=== PATIENT | female | born 1970 | race Caucasian/White ===

== ENCOUNTER 2016-09-19 22:38 | Emergency (ER) | payer MEDICAID ==
[2016-09-19] MEDS ORDERED: HYDROmorphone 1 MG/ML SYRINGE IM STA ×2 (23:01→23:50)
[2016-09-19] MEDS ORDERED: CEPHALEXIN 250 MG CAPSULE PO STA (23:02)
[2016-09-19] MEDS ORDERED: PROMETHAZINE 25 MG/1 ML VIAL IM STA (23:02)
[2016-09-19] MEDS ORDERED: KETOROLAC 30 MG/ML VIAL IM STA (23:02)
[2016-09-19] MEDS ORDERED: PROMETHAZINE 25 MG/1 ML VIAL ONE (23:07)
[2016-09-19] MEDS ORDERED: KETOROLAC 30 MG/ML VIAL ONE (23:07)
[2016-09-19] MEDS ORDERED: CEPHALEXIN 250 MG CAPSULE PO ONE (23:07)
[2016-09-19] MEDS ORDERED: HYDROmorphone 1 MG/ML SYRINGE ONE (23:07)
[2016-09-19] MEDS ORDERED: ACETAMINOPHEN 325 MG TABLET PO STA (23:50)
[2016-09-20] MEDS ORDERED: HYDROmorphone 1 MG/ML SYRINGE ONE (00:02)
[2016-09-20] MEDS ORDERED: ACETAMINOPHEN 325 MG TABLET PO ONE (00:02)
[2016-09-20] MEDS ORDERED: HYDROcod/ACET 5/325 Prepack 6 PO ONE ×2 (00:52→01:01)
[2016-09-20] MEDS ORDERED: CEPHALEXIN 250 MG Prepack 8 PO ONE ×2 (00:52→01:01)
[2016-09-20] MEDS ORDERED: ALBUTEROL 8 GM INHALER INH STA (00:52)
[2016-09-20] MEDS ORDERED: ALBUTEROL 8 GM INHALER INH ONE (01:14)
[2016-09-20] MEDS ORDERED: METHOCARBAMOL 500 MG TABLET PO STA (01:24)
[2016-09-20] MEDS ORDERED: METHOCARBAMOL 500 MG TABLET PO ONE (01:25)
== END 2016-09-20 01:28 | disposition home or self-care (01) ==
DX: H66.90 Otitis media, unspecified, unspecified ear (principal); I88.9 Nonspecific lymphadenitis, unspecified; R51 Headache; J44.9 Chronic obstructive pulmonary disease, unspecified; J45.909 Unspecified asthma, uncomplicated; F17.200 Nicotine dependence, unspecified, uncomplicated
CPT/HCPCS: 70450; 94640; 96372; 99282; 99284; A9270

== ENCOUNTER 2016-10-19 01:06 | Emergency (ER) | payer MEDICAID ==
[2016-10-19] MEDS ORDERED: AMOX/CLAV 875 MG/125 MG TABLET PO STA (01:37)
[2016-10-19] MEDS ORDERED: DEXAMETHASONE 10 MG/ML VIAL PO STA (01:37)
[2016-10-19] MEDS ORDERED: AMOX/CLAV 875 MG/125 MG TABLET PO ONE (01:38)
[2016-10-19] MEDS ORDERED: DEXAMETHASONE 10 MG/ML VIAL ONE (01:38)
== END 2016-10-19 01:43 | disposition home or self-care (01) ==
DX: I88.9 Nonspecific lymphadenitis, unspecified (principal); E78.00 Pure hypercholesterolemia, unspecified; J45.909 Unspecified asthma, uncomplicated; J44.9 Chronic obstructive pulmonary disease, unspecified; M79.7 Fibromyalgia; F17.200 Nicotine dependence, unspecified, uncomplicated
CPT/HCPCS: 99283; A9270

== ENCOUNTER 2017-11-24 08:58 | Emergency (ER) | payer MEDICAID ==
[2017-11-24 09:12] VITALS: BP 138/90
--- NOTE | 2017-11-24 09:33 | ED Physician Documentation ---
History of Present Illness - Stated complaint Stated Complaint: EAR PX - Chief complaint Chief Complaint: Heent - History obtained from History obtained from: Patient, Friend - History of Present Illness Timing: Yesterday Pain level max: 5 Pain level now: 4 Improved by: nothing Worsened by: nothing - Additonal information Additional information: Patient is a 47-year-old female who has had viral URI symptoms for the past 2 weeks, rhinorrhea, cough congestion. States that yesterday she began to have right ear pain. Noticed some blood on the cotton swab this morning. No fevers. Review of Systems Constitutional: denies: Fever, Chills Ears: denies: Ear pain Nose: reports: Rhinorrhea / runny nose, Congestion Throat: denies: Sore throat Cardiac: denies: Chest pain / pressure Respiratory: reports: Cough. 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 - Present Medications Home Medications: Ambulatory Orders Medication Instructions Recorded Confirmed Bupropion HCl [Wellbutrin] 100 mg PO BID 05/22/13 09/19/16 rOPINIRole [Requip] 15 mg PO HS 05/22/13 10/19/16 Albuterol Sulfate 2.5 mg IH Q6H PRN #1 bot 03/29/16 09/19/16 Albuterol Sulfate [Proventil Hfa 1 - 2 puffs IH Q4H PRN #1 03/29/16 09/19/16 Inhaler] hfa.aer.ad Fluticasone Propionate [Flovent 03/29/16 Diskus] Albuterol Sulfate [Proair Hfa 2 puffs IH QID #1 hfa.aer.ad 09/20/16 Inhaler] Hydrocodone/Acetaminophen [[place] 1 each PO Q6H PRN #20 tablet 09/20/16 10/19/16 5-325 Tablet] Methocarbamol [Robaxin] 500 mg PO Q6H PRN #25 tablet 09/20/16 10/19/16 Ondansetron Odt [Zofran] 4 mg TL Q6H PRN #15 tablet 09/20/16 10/19/16 Amoxicillin/Potassium Clav 1 each PO BID #20 tablet 10/19/16 [Augmentin 875-125 Tablet] Cetirizine HCl/Pseudoephedrine 1 each PO BID PRN #30 tab.er.12h 11/24/17 [Zyrtec-D Tablet] Neomycin/Polymyx/Hc Otic Drops 4 drops OT TID 10 Days #1 bottle 11/24/17 [Cortisporin Ear Susp] - Allergies Allergies/Adverse Reactions: Allergies Allergy/AdvReac Type Severity Reaction Status Date / Time codeine Allergy Cramps Verified 10/19/16 01:14 ibuprofen Allergy Nausea Verified 10/19/16 01:14 - Social History Does the pt smoke?: Yes Smoking Status: Current every day smoker Does the pt drink ETOH?: No Does the pt have substance abuse?: No - Immunizations Immunizations are current?: Yes - POLST Patient has POLST: No PD ED PE NORMAL - Vitals Vital signs reviewed: Yes - General General: Alert and oriented X 3, No acute distress - HEENT HEENT: Moist mucous membranes, Other (L TM normal. R TM is erythematous, canal is swollen with white/yellow drainage. ) - Neck Neck: Supple, no meningeal sign - Cardiac Cardiac: RRR, Strong equal pulses - Respiratory Respiratory: No respiratory distress, Clear bilaterally - Derm Derm: Warm and dry - Neuro Neuro: Alert and oriented X 3 - Psych Psych: Normal mood, Normal affect Results - Vitals Vitals: Vital Signs - 24 hr 11/24/17 09:10 Temperature 36.7 C Heart Rate 80 Respiratory 20 Rate Blood Pressure 138/90 H O2 Saturation 100 Oxygen O2 Source Room air PD MEDICAL DECISION MAKING - ED course Complexity details: considered differential, d/w patient ED course: Patient is a 47-year-old female with a right acute otitis externa as well as a viral upper respiratory infection. No evidence of pneumonia. No hypoxia. No respiratory distress. No evidence of sepsis. Tympanic membrane does not appear to be ruptured at this time. Will place on otic antibiotics and follow- up with her doctor. Patient counseled regarding signs and symptoms for which I believe and urgent re-evaluation would be necessary. Patient with good understanding of and agreement to plan and is comfortable going home at this time This document was made in part using voice recognition software. While efforts are made to proofread this document, sound alike and grammatical errors may occur. Departure - Departure Disposition: Home, Self Care Clinical Impression: Viral URI Otitis externa Qualifiers: Otitis externa type: unspecified type Chronicity: acute Laterality: right Qualified Code(s): H60.501 - Unspecified acute noninfective otitis externa, right ear Condition: Good Instructions: ED Viral Syndrome, ED Otitis Externa Follow-Up: your,doctor in 1 week for recheck [Other] Prescriptions: Cetirizine HCl/Pseudoephedrine [Zyrtec-D Tablet] 1 each PO BID PRN #30 tab.er.12h PRN Reason: Nasal Congestion Neomycin/Polymyx/Hc Otic Drops [Cortisporin Ear Susp] 4 drops OT TID 10 Days #1 bottle Comments: Return if you worsen. This should improve over the next 24-48 hours. Discharge Date/Time: 11/24/17 09:41
== END 2017-11-24 09:41 | disposition home or self-care (01) ==
LOC: ED 08:58
DX: H60.501 Unspecified acute noninfective otitis externa, right ear (principal); J06.9 Acute upper respiratory infection, unspecified; J43.9 Emphysema, unspecified; F17.200 Nicotine dependence, unspecified, uncomplicated
CPT/HCPCS: 99283

== ENCOUNTER 2018-01-20 00:14 | Emergency (ER) | payer MEDICAID ==
[2018-01-20 00:19] VITALS: BP 128/73
[2018-01-20] MEDS ORDERED: AZITHROMYCIN 250 MG TABLET PO STA (00:30)
[2018-01-20] MEDS ORDERED: DEXAMETHASONE 10 MG/ML VIAL PO STA (00:30)
--- NOTE | 2018-01-20 00:33 | ED Physician Documentation ---
PD HPI URI - Stated complaint Stated Complaint: R EAR PX - Chief complaint Chief Complaint: Heent - History obtained from History obtained from: Patient - History of Present Illness Timing - onset: How many days ago (2) Timing duration: Days (2) Timing details: Gradual onset Pain level max: 6 Pain level now: 4 Associated symptoms: Nasal congestion, Rhinorrhea, Sore throat, Dry cough. No: Fever, Chills, Sinus pain, Hemoptysis, Chest pain, Dyspnea, NVD Contributing factors: No: Sick contact Improves by: Rest, Medication (tylenol) Recently seen: Emergency Dept (for otitis externa, which resolved) Review of Systems Constitutional: denies: Fever, Chills Ears: reports: Ear pain Nose: reports: Rhinorrhea / runny nose, Congestion Respiratory: reports: Cough Skin: denies: Rash Musculoskeletal: denies: Neck pain, Back pain Neurologic: denies: Headache PD PAST MEDICAL HISTORY - Past Medical History Past Medical History: Yes Cardiovascular: None, High cholesterol Respiratory: Asthma, COPD, Emphysema Neuro: None, Headache/migraine, Head injury Endocrine/Autoimmune: None GI: None 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 : None HEENT: None Psych: Depression, Anxiety, ADD/ADHD Musculoskeletal: Fibromyalgia Derm: None - Past Surgical History 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 - Present Medications Home Medications: Ambulatory Orders Medication Instructions Recorded Confirmed Azithromycin [Zithromax] 250 mg PO DAILY #4 tablet 01/20/18 - Allergies Allergies/Adverse Reactions: Allergies Allergy/AdvReac Type Severity Reaction Status Date / Time codeine Allergy Cramps Verified 10/19/16 01:14 ibuprofen Allergy Nausea Verified 10/19/16 01:14 - Social History Does the pt smoke?: Yes Smoking Status: Current every day smoker Does the pt drink ETOH?: No Does the pt have substance abuse?: No - Immunizations Immunizations are current?: Yes - POLST Patient has POLST: No PD ED PE NORMAL - Vitals Vital signs reviewed: Yes - General General: Alert and oriented X 3, No acute distress - HEENT HEENT: Moist mucous membranes, Pharynx benign, Other (Right tympanic membrane is erythematous, dull, bulging with loss of landmarks. Purulent fluid present. Left TM is mildly erythematous no fluid) - Neck Neck: Supple, no meningeal sign, No adenopathy - Cardiac Cardiac: RRR, Strong equal pulses - Respiratory Respiratory: No respiratory distress, Clear bilaterally - Abdomen Abdomen: Soft, Non tender, Non distended - Derm Derm: Warm and dry - Neuro Neuro: Alert and oriented X 3 - Psych Psych: Normal mood, Normal affect Results - Vitals Vitals: Vital Signs - 24 hr 01/20/18 00:17 Temperature 36.0 C L Heart Rate 86 Respiratory 16 Rate Blood Pressure 128/73 O2 Saturation 100 Oxygen O2 Source Room air PD MEDICAL DECISION MAKING - ED course Complexity details: considered differential, d/w patient ED course: Patient is a 47-year-old female who presents to the emergency department with what appears to be a right acute otitis media. Given azithromycin and dexamethasone. Will prescribe antibiotics for home and follow-up closely with her doctor. She is well-appearing, nontoxic. Lungs are clear to auscultation bilaterally. Patient counseled regarding signs and symptoms for which I believe and urgent re-evaluation would be necessary. Patient with good understanding of and agreement to plan and is comfortable going home at this time This document was made in part using voice recognition software. While efforts are made to proofread this document, sound alike and grammatical errors may occur. Departure - Departure Disposition: 01 Home, Self Care Clinical Impression: Otitis media Qualifiers: Otitis media type: suppurative Chronicity: acute Laterality: bilateral Recurrence: not specified as recurrent Spontaneous tympanic membrane rupture: without spontaneous rupture Qualified Code(s): H66.003 - Acute suppurative otitis media without spontaneous rupture of ear drum, bilateral Condition: Good Instructions: ED Otitis Media Acute Adult Follow-Up: your,doctor in 1week [Other] Prescriptions: Azithromycin [Zithromax] 250 mg PO DAILY #4 tablet Comments: Take all antibiotics until gone. Return if you worsen.
== END 2018-01-20 00:38 | disposition home or self-care (01) ==
LOC: ED 00:14
DX: H66.003 Acute suppurative otitis media without spontaneous rupture of ear drum, bilateral (principal); E78.00 Pure hypercholesterolemia, unspecified; J44.9 Chronic obstructive pulmonary disease, unspecified; M79.7 Fibromyalgia; F17.200 Nicotine dependence, unspecified, uncomplicated
CPT/HCPCS: 99283; A9270

== ENCOUNTER 2018-12-22 14:57 | Emergency (ER) | payer MEDICAID ==
[2018-12-22] MEDS ORDERED: DEXAMETHASONE 10 MG/ML VIAL PO STA (15:36)
--- NOTE | 2018-12-22 15:43 | ED Physician Documentation ---
PD HPI HEENT - Stated complaint Stated Complaint: EAR PX - Chief complaint Chief Complaint: Heent - History obtained from History obtained from: Patient - History of Present Illness Timing - onset: How many weeks ago (1) Timing - duration: Weeks (1) Timing - details: Gradual onset, Still present Location: Right ear, Sinuses, Throat Improves: Medication Associated symptoms: Fever, Congestion, Rhinorrhea, Cough Similar symptoms before: Diagnosis (otitis with rupture.) Recently seen: Not recently seen - Additional information Additional information: 48-year-old female well-known to our emergency department has been well for several years now she has developed a cough and congestion sinus pain on the right side and ear pain on the right side. She has some injection to the right thigh as well. She has had this previously with a middle ear infection with rupture of the tympanic membrane. Review of Systems Constitutional: denies: Fever Eyes: reports: Irritation. denies: Decreased vision Ears: reports: Ear pain Nose: reports: Rhinorrhea / runny nose, Congestion, Sinus pressure / pain Throat: reports: Sore throat Cardiac: denies: Chest pain / pressure, Palpitations Respiratory: reports: Cough. 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 - Present Medications Home Medications: Ambulatory Orders Medication Instructions Recorded Confirmed Azithromycin [Zithromax] 250 mg PO DAILY #4 tablet 01/20/18 Amox/Clav 875/125 [Augmentin] 1 each PO Q12H #20 tablet 12/22/18 - Allergies Allergies/Adverse Reactions: Allergies Allergy/AdvReac Type Severity Reaction Status Date / Time codeine Allergy Cramps Verified 12/22/18 15:14 ibuprofen Allergy Nausea Verified 12/22/18 15:14 - Social History Does the pt smoke?: Yes Smoking Status: Current every day smoker Does the pt drink ETOH?: No Does the pt have substance abuse?: No - Immunizations Immunizations are current?: Yes - POLST Patient has POLST: No PD ED PE NORMAL - Vitals Vital signs reviewed: Yes (normal ) - General General: Alert and oriented X 3, No acute distress, Well developed/nourished - HEENT HEENT: Atraumatic, PERRL, EOMI, Pharynx benign, Other (Both TM's are inflamed the right is much worse than the left with buldging and injection. There is right maxillary sinus point tenderness. ) - Neck Neck: Supple, no meningeal sign, No bony TTP - Cardiac Cardiac: RRR, No murmur - Respiratory Respiratory: No respiratory distress, Clear bilaterally - Abdomen Abdomen: Soft, Non tender - Back Back: No CVA TTP, No spinal TTP - Derm Derm: Normal color, Warm and dry, No rash - Extremities Extremities: No deformity, No edema - Neuro Neuro: Alert and oriented X 3, glass decorator 2-12 intact, No motor deficit, No sensory deficit, Normal speech Eye Opening: Spontaneous Motor: Obeys Commands Verbal: Oriented GCS Score: 15 - Psych Psych: Normal mood, Normal affect Results - Vitals Vitals: Vital Signs - 24 hr 12/22/18 15:08 Temperature 36.2 C L Heart Rate 84 Respiratory 18 Rate Blood Pressure 126/73 O2 Saturation 98 Oxygen O2 Source Room air PD MEDICAL DECISION MAKING - ED course Complexity details: reviewed old records, considered differential, d/w patient ED course: 48-year-old female cough and congestion has bilateral otitis much worse on the right and left she is administered dexamethasone 10 mg orally and we will place her on some Augmentin. Departure - Departure Disposition: 01 Home, Self Care Clinical Impression: Otitis media Condition: Stable Instructions: ED Otitis Media Acute Adult Follow-Up: [facility] [Provider Group] Prescriptions: Amox/Clav 875/125 [Augmentin] 1 each PO Q12H #20 tablet
[2018-12-22 16:05] VITALS: BP 124/74
== END 2018-12-22 16:04 | disposition home or self-care (01) ==
LOC: ED 14:57
DX: H66.93 Otitis media, unspecified, bilateral (principal); E78.00 Pure hypercholesterolemia, unspecified; F17.200 Nicotine dependence, unspecified, uncomplicated
CPT/HCPCS: 99283

== ENCOUNTER 2020-02-28 23:19 | Emergency (ER) | payer MEDICAID ==
[2020-02-28 23:46] LABS: BILIRUBIN,URINE NEGATIVE (NEGATIVE); GLUCOSE, URINE (UA) NEGATIVE (NEGATIVE); KETONES,URINE (UA) NEGATIVE (NEGATIVE); LEUKOCYTE ESTERASE, URINE NEGATIVE (NEGATIVE); NITRITE,URINE POSITIVE (NEGATIVE); OCCULT BLOOD,URINE NEGATIVE (NEGATIVE); PH,URINE 6.5 PH (5.0-7.5); PROTEIN,URINE NEGATIVE (NEGATIVE); UROBILINOGEN,URINE 4 E.U./dL (NORMAL)
[2020-02-28 23:49] LABS: CLARITY,URINE CLEAR (CLEAR)
[2020-02-28 23:55] LABS: BACTERIA,URINE Many /HPF (None Seen); RBC,URINE None Seen /HPF (0-5); SQUAMOUS EPITHELIAL CELL,UR RARE Squamous (<= Few)
--- NOTE | 2020-02-29 00:07 | ED Physician Documentation ---
PD HPI ABD PAIN - Stated complaint Stated Complaint: ABD PX/LEG SWELLING - Chief complaint Chief Complaint: Abd Pain - History obtained from History obtained from: Patient - History of Present Illness Timing - onset: Today (Onset this morning of lower abd cramping pains, mainly LLQ, associated with diarrhea often through the day. Nausea without vomiting. General malaise and weakness through the day into this evening.) Timing - duration: Days (1) Timing - details: Abrupt onset, Still present, Waxing and waning Quality: Cramping, Aching, Pain Location: Suprapubic, LLQ Radiation: No: Lower back, Left flank Improved by: No: Eating, Laying still Worsened by: Eating. No: Position Associated symptoms: Nausea, Diarrhea, Loss of appetite. No: Fever, Vomiting, Constipation, Melena, Dysuria Similar symptoms before: Has not had sx before Recently seen: Not recently seen Review of Systems Constitutional: reports: Myalgias, Fatigue. denies: Fever, Chills Nose: denies: Rhinorrhea / runny nose, Congestion Throat: denies: Sore throat Respiratory: denies: Cough GI: reports: Abdominal Pain, Nausea, Diarrhea. denies: Vomiting, Bloody / black stool : reports: Dysuria (for a week, with odorous urine). denies: Discharge Skin: denies: Rash Musculoskeletal: reports: Extremity swelling (She states she has had swelling in both legs for a few months primarily when up and on her feet at work. It has been more consistent and more noticeable the last week or 2. She denies any orthopnea nor dyspnea on exertion.) Neurologic: reports: Generalized weakness. 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 - Present Medications Home Medications: Ambulatory Orders Medication Instructions Recorded Confirmed Azithromycin [Zithromax] 250 mg PO DAILY #4 tablet 01/20/18 Amox/Clav 875/125 [Augmentin] 1 each PO Q12H #20 tablet 12/22/18 Cephalexin [Keflex] 500 mg PO TID #15 capsule 02/29/20 Ondansetron Odt [Zofran] 4 mg TL Q6H PRN #10 tablet 02/29/20 Oxycodone HCl/Acetaminophen 1 each PO Q6H PRN #14 tablet 02/29/20 [Percocet 5-325 mg Tablet] hydroCHLOROthiazide 25 mg PO DAILY #15 tablet 02/29/20 [Hydrochlorothiazide] metroNIDAZOLE [Flagyl] 500 mg PO BID #10 tablet 02/29/20 - Allergies Allergies/Adverse Reactions: Allergies Allergy/AdvReac Type Severity Reaction Status Date / Time codeine Allergy Cramps Verified 02/28/20 23:26 ibuprofen Allergy Nausea Verified 02/28/20 23:26 - Social History Does the pt smoke?: Yes Smoking Status: Current every day smoker Does the pt drink ETOH?: No Does the pt have substance abuse?: No - Immunizations Immunizations are current?: Yes - POLST Patient has POLST: No PD ED PE NORMAL - Vitals Vital signs reviewed: Yes - General General: Alert and oriented X 3, No acute distress, Well developed/nourished - HEENT HEENT: Moist mucous membranes, Pharynx benign - Neck Neck: Supple, no meningeal sign, No adenopathy - Cardiac Cardiac: RRR, No murmur - Respiratory Respiratory: Clear bilaterally - Abdomen Abdomen: Soft, Non distended, No organomegaly, Other (tender LLQ with local guarding and rebound. No percussion tenderness. ). No: Normal bowel sounds (diminished) - Female Female : Deferred - Rectal Rectal: Deferred - Back Back: No CVA TTP - Derm Derm: Normal color, Warm and dry - Extremities Extremities: No tenderness to palpate, Normal ROM s pain, No calf tenderness / cord, Other (1+ edema in both lower legs up to mid shins No edema in toes. ) - Neuro Neuro: Alert and oriented X 3, No motor deficit, Normal speech Results - Vitals Vitals: Vital Signs - 24 hr 02/28/20 02/29/20 02/29/20 23:23 00:09 01:48 Temperature 37.0 C Heart Rate 85 82 86 Respiratory 18 17 16 Rate Blood Pressure 134/56 H 138/73 H 120/62 O2 Saturation 96 97 94 02/29/20 02:30 Temperature Heart Rate 86 Respiratory 16 Rate Blood Pressure 123/65 O2 Saturation 94 Oxygen O2 Source Room air - Labs Labs: Laboratory Tests 02/28/20 02/28/20 02/28/20 23:27 23:40 23:40 WBC 6.4 RBC 4.03 L Hgb 12.9 Hct 38.7 MCV 96.0 MCH 32.0 H MCHC 33.3 RDW 13.7 Plt Count 126 L MPV 12.6 H Neut # (Auto) 3.6 Lymph # (Auto) 2.2 [place] # (Auto) 0.5 Eos # (Auto) 0.1 Baso # (Auto) 0.0 Absolute Nucleated RBC 0.00 Nucleated RBC % 0.0 Sodium 137 Potassium 3.3 L Chloride 105 Carbon Dioxide 25 Anion Gap 7.0 BUN 10 Creatinine 0.5 Estimated GFR (MDRD) 131 Glucose 97 Lactic Acid Calcium 8.3 L Magnesium 2.0 Total Bilirubin 1.9 H AST 424 H ALT 340 H Alkaline Phosphatase 164 H B-Natriuretic Peptide Total Protein 6.8 Albumin 3.0 L Globulin 3.8 Albumin/Globulin Ratio 0.8 L Lipase 36 Urine Color YELLOW Urine Clarity CLEAR Urine pH 6.5 Ur Specific [place] 1.020 Urine Protein NEGATIVE Urine Glucose (UA) NEGATIVE Urine Ketones NEGATIVE Urine Occult Blood NEGATIVE Urine Nitrite POSITIVE H Urine Bilirubin NEGATIVE Urine Urobilinogen 4 H Ur Leukocyte Esterase NEGATIVE Urine RBC None Seen Urine WBC 0-3 Ur Squamous Epith Cells RARE Squamous Urine Bacteria Many H Ur Microscopic Review INDICATED Urine Culture Comments INDICATED 02/28/20 02/29/20 23:40 00:30 WBC RBC Hgb Hct MCV MCH MCHC RDW Plt Count MPV Neut # (Auto) Lymph # (Auto) [place] # (Auto) Eos # (Auto) Baso # (Auto) Absolute Nucleated RBC Nucleated RBC % Sodium Potassium Chloride Carbon Dioxide Anion Gap BUN Creatinine Estimated GFR (MDRD) Glucose Lactic Acid 0.9 Calcium Magnesium Total Bilirubin AST ALT Alkaline Phosphatase B-Natriuretic Peptide 109 H Total Protein Albumin Globulin Albumin/Globulin Ratio Lipase Urine Color Urine Clarity Urine pH Ur Specific [place] Urine Protein Urine Glucose (UA) Urine Ketones Urine Occult Blood Urine Nitrite Urine Bilirubin Urine Urobilinogen Ur Leukocyte Esterase Urine RBC Urine WBC Ur Squamous Epith Cells Urine Bacteria Ur Microscopic Review Urine Culture Comments - Rads (name of study) abd pelvic CT Radiology: Prelim report reviewed (colonic wall thickness c/w colitis. Mild pericholocystic fluids, nonspecific. No gallstones. Appendix normal. No focal infections. ), See rad report PD MEDICAL DECISION MAKING - ED course Complexity details: reviewed results (Consideration for colitis. Her white count and lactate are normal and appears to have blood flow through the regions of the abdomen so does not appear ischemic colitis. It is generalized on the CT scan even though more localized on physical exam. Presume in infectious colitis though food toxin would still be possible. She does have bladder infection and she had had some symptoms of that for a week or so. We will give antibiotics for that and can choose ones that could cover for infectious colitis as well.), re-evaluated patient, considered differential, d/w patient Departure - Departure Disposition: Home, Self Care Clinical Impression: Lower abdominal pain, Acute colitis, Bilateral leg edema UTI (urinary tract infection) Qualifiers: Urinary tract infection type: acute cystitis Hematuria presence: without hematuria Qualified Code(s): N30.00 - Acute cystitis without hematuria Condition: Stable Record reviewed to determine appropriate education?: Yes Instructions: ED UTI Cystitis Female, ED Edema Legs Bilateral, ED Gastroenteritis Vs Food Poison Prescriptions: Cephalexin [Keflex] 500 mg PO TID #15 capsule hydroCHLOROthiazide [Hydrochlorothiazide] 25 mg PO DAILY #15 tablet metroNIDAZOLE [Flagyl] 500 mg PO BID #10 tablet Ondansetron Odt [Zofran] 4 mg TL Q6H PRN #10 tablet PRN Reason: Nausea / Vomiting Oxycodone HCl/Acetaminophen [Percocet 5-325 mg Tablet] 1 each PO Q6H PRN #14 tablet PRN Reason: pain Comments: Your urine test does show signs of a bladder infection so we can go with an antibiotic for that. Your symptoms today along with your findings on CT scan are suggestive of a enteritis/colitis. This can be food related at times or infectious such as viral or bacterial. We will begin with the antibiotic for the bladder and will choose ones that would be effective for that as well as potential bacterial colitis. Otherwise commonly viral causes or food related will give significant symptoms for a day or 2 and then improve. Ondansetron if needed for nausea. Percocet if needed for abdominal pains and diarrhea. Cephalexin and metronidazole antibiotics for infection. I would anticipate improvement within 1 to 2 days and resolution/back to normal within 2 or 3 days. Recheck if not improving in that timeframe and return sooner if worsening. Your leg swelling does not look to be caused by heart failure or kidney failure and I presume its a gravity effect. Elevate and rest your legs at the end of the day and also consider compressive socks when you are on your feet during the day. We could still prescribe mild water pill for a week or 2 and see if that helps as well. Forms: Activity restrictions
[2020-02-29] MEDS ORDERED: HYDROmorphone 1 MG/ML CARPUJECT IVP STA ×2 (00:25→02:15)
[2020-02-29] MEDS ORDERED: SODIUM CHLORIDE 0.9% 1,000 ML IV STA (00:25)
[2020-02-29] MEDS ORDERED: KETOROLAC 15 MG/ML VIAL IVP STA (00:25)
[2020-02-29] MEDS ORDERED: ONDANSETRON 4 MG/2 ML VIAL IVP STA (00:25)
[2020-02-29] MEDS ORDERED: cefTRIAXone 1 GM VIAL IVP STA (00:28)
[2020-02-29 00:32] LABS: BASOPHILS % (AUTO) 0.5 %; EOSINOPHILS # (AUTO) 0.1 10^3/uL (0.0-0.7); EOSINOPHILS % (AUTO) 0.8 %; HGB - HEMOGLOBIN 12.9 g/dL (12.0-16.0); LYMPHOCYTES # (AUTO) 2.2 10^3/uL (1.5-3.5); LYMPHOCYTES % (AUTO) 34.8 %; MEAN CORPUSCULAR HGB CONC 33.3 g/dL (32.0-36.0); MEAN PLATELET VOLUME 12.6 fL (7.9-10.8); MONOCYTES # (AUTO) 0.5 10^3/uL (0.0-1.0); MONOCYTES % (AUTO) 7.9 %; NEUTROPHILS # (AUTO) 3.6 10^3/uL (1.5-6.6); NEUTROPHILS % (AUTO) 55.8 %; PLT - PLATELET COUNT 126 10^3/uL (130-450); RED BLOOD COUNT 4.03 10^6/uL (4.20-5.40); RED CELL DISTRIBUTION WIDTH 13.7 % (12.0-15.0); WHITE BLOOD COUNT 6.4 x10^3/uL (4.8-10.8)
[2020-02-29 00:48] LABS: ALBUMIN/GLOBULIN RATIO 0.8 (1.0-2.2); BILIRUBIN,TOTAL 1.9 mg/dL (0.2-1.0); CALCIUM 8.3 mg/dL (8.5-10.3); CREATININE 0.5 mg/dL (0.4-1.0); TOTAL PROTEIN 6.8 g/dL (6.7-8.2)
[2020-02-29] MEDS ORDERED: IOVERSOL 320 100 ML VIAL IVP ONE ×2 (00:52→01:21)
[2020-02-29] MEDS ORDERED: DIPHENOX/ATROPINE 2.5/0.025 MG TABLET PO STA (02:15)
[2020-02-29] MEDS ORDERED: metroNIDAZOLE 250 MG TABLET PO STA (02:15)
[2020-02-29] MEDS ORDERED: oxyCODONE/ACET 5/325 Prepack 4 PO STA (02:16)
[2020-02-29] MEDS ORDERED: ONDANSETRON ODT 4 MG Prepack 2 TL PRN (02:16)
[2020-02-29 02:31] VITALS: BP 123/65
--- NOTE | 2020-02-29 09:51 | CT Report ---
Reason: LLQ Abdominal pain, diverticulitis suspected Procedure Date: 02/29/2020 Accession Number: [id number] / [id number] Procedure: CT - Abdomen/Pelvis W CPT Code: Final Report FULL RESULT: PROCEDURE: Abdomen/Pelvis W INDICATIONS: LLQ Abdominal pain, diverticulitis suspected CONTRAST: IV CONTRAST: Optiray 320 ml: 100 PO CONTRAST: *NO PO CONTRAST TECHNIQUE: After the administration of oral and intravenous contrast, 5 mm thick sections acquired from the diaphragms to the symphysis. 5 mm thick coronal and sagittal reformats were acquired. For radiation dose reduction, the following was used: automated exposure control, adjustment of mA and/or kV according to patient size. COMPARISON: None. FINDINGS: Image quality: Excellent. ABDOMEN: Lung bases: Lung bases are clear. Heart size is normal. Small hiatal hernia. Solid organs: Mild hepatic steatosis. Liver has subtle nodular contour. Liver and spleen are normal in size and enhancement. There is a calcified nodule in spleen, consistent with an old granuloma. Gallbladder contains no gallstones. Trace amount of pericholecystic fluid may be present. Biliary system is non dilated. Pancreas enhances normally. No adrenal nodules. Kidneys demonstrate normal size and enhancement, without hydronephrosis. Peritoneum and bowel: Mild diffuse colonic wall thickening and pericolonic edema consistent with mild colitis. A few colonic diverticula are noted. No findings to suggest acute diverticulitis. Normal appendix. Bowel loops demonstrate normal caliber. A trace amount of free fluid. No free air. Nodes and vessels: No retroperitoneal or mesenteric adenopathy by size criteria. Aorta and inferior vena cava are normal in size. Miscellaneous: No ventral hernias. PELVIS: Genitourinary: Bladder wall thickness is normal. Uterus is absent. Ovaries are not visualized. No pathological free fluid in cul-de-sac. Miscellaneous: No inguinal hernias or adenopathy. Bones: No suspicious bony lesions. No vertebral body compression fractures. IMPRESSION: 1. Mild diffuse colonic wall thickening consistent with mild colitis. Differential diagnoses include inflammatory bowel disease versus infectious colitis. 2. Mild diverticulosis without diverticulitis. 3. Mild hepatic steatosis. Liver has subtle nodular contour. Please correlate with liver enzymes. No significant discrepancy with the preliminary interpretation. Reviewed by: Wu Lundberg MD on 02/29/2020 9:49 AM PDT Approved by: Wu Lundberg MD on 02/29/2020 9:49 AM PDT Station ID: [id number]
== END 2020-02-29 03:00 | disposition home or self-care (01) ==
LOC: ED 23:19
DX: K52.9 Noninfective gastroenteritis and colitis, unspecified (principal); N30.00 Acute cystitis without hematuria; R60.0 Localized edema; F17.200 Nicotine dependence, unspecified, uncomplicated
CPT/HCPCS: 36415; 74177; 80053; 81001; 83605; 83690; 83735; 83880; 85025; 87086; 87181; 96361; 96374; 99284; 99285; A9270; J1170; Q9967; 81003

== ENCOUNTER 2020-03-18 16:11 | Emergency (ER) | payer MEDICAID ==
[2020-03-18 16:34] VITALS: BP 132/73
--- NOTE | 2020-03-18 17:07 | ED Physician Documentation ---
History of Present Illness - Stated complaint Stated Complaint: Med Refill - Chief complaint Chief Complaint: General - History obtained from History obtained from: Patient - Additonal information Additional information: Has been going on for nearly a year but that has been worse lately. 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 She was seen and worked up for her edema recently here in the emergency department and no specific diagnosis was made at that time she states. She was put on hydrochlorothiazide, which she found to be very helpful, but she has run out, and she has not been able to get into see her primary care physician. Patient states that she does not have any shortness of breath or chest pain. She does not use pressure stockings, and has not tried this. No other complaints at this time. Review of Systems Ten Systems: 10 systems reviewed and negative Constitutional: reports: Reviewed and negative Eyes: reports: Reviewed and negative Ears: reports: Reviewed and negative Nose: reports: Reviewed and negative Throat: reports: Reviewed and negative Cardiac: reports: Reviewed and negative Respiratory: reports: Reviewed and negative GI: reports: Reviewed and negative : reports: Reviewed and negative Skin: reports: Reviewed and negative Musculoskeletal: reports: Reviewed and negative Neurologic: reports: Reviewed and negative Psychiatric: reports: Reviewed and negative Endocrine: reports: Reviewed and negative Immunocompromised: reports: Reviewed and negative PD PAST MEDICAL HISTORY - Past Medical History Past Medical History: Yes Cardiovascular: High cholesterol Respiratory: Asthma, COPD, Emphysema Neuro: None Endocrine/Autoimmune: None GI: GERD 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 : None HEENT: None Psych: Depression, Anxiety, ADD/ADHD Musculoskeletal: Fibromyalgia Derm: None - Past Surgical History Past Surgical History: Yes /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: Hysterectomy - Present Medications Home Medications: Ambulatory Orders Medication Instructions Recorded Confirmed hydroCHLOROthiazide 25 mg PO DAILY #15 tablet 02/29/20 03/18/20 [Hydrochlorothiazide] Naproxen Sodium [Aleve] 220 mg PO DAILY 03/18/20 03/18/20 hydroCHLOROthiazide 25 mg PO DAILY #30 tablet 03/18/20 [Hydrochlorothiazide] - Allergies Allergies/Adverse Reactions: Allergies Allergy/AdvReac Type Severity Reaction Status Date / Time codeine Allergy Cramps Verified 03/18/20 16:31 ibuprofen Allergy Nausea Verified 03/18/20 16:31 - Social History Does the pt smoke?: Yes Smoking Status: Current every day smoker Does the pt drink ETOH?: No Does the pt have substance abuse?: No - Immunizations Immunizations are current?: Yes - POLST Patient has POLST: No PD ED PE NORMAL - Vitals Vital signs reviewed: Yes - General General: Alert and oriented X 3, No acute distress - HEENT HEENT: PERRL - Neck Neck: Supple, no meningeal sign - Cardiac Cardiac: RRR, No murmur - Respiratory Respiratory: Clear bilaterally - Derm Derm: Normal color, Warm and dry, No rash - Extremities Extremities: No deformity, Other (Patient has marked pitting edema in her bilateral lower extremities from the knees down through her feet.) - Neuro Neuro: Alert and oriented X 3, Other (Grossly normal.) - Psych Psych: Normal mood, Normal affect Results - Vitals Vitals: Vital Signs - 24 hr 03/18/20 16:31 Temperature 36.5 C Heart Rate 91 Respiratory 16 Rate Blood Pressure 132/73 H O2 Saturation 99 Oxygen O2 Source Room air PD MEDICAL DECISION MAKING - ED course Complexity details: considered differential, d/w patient ED course: I discussed with the patient that we will put her back on her hydro chlorothiazide and I would also recommend prescription grade pressure stockings, which I will prescribe for the patient. I would especially recommend these while the patient is at her job as a lighting engineer. Patient is agreeable to this plan. I discussed with her that she will need to make an appoint with her primary care physician to follow-up on this issue.We have discussed the usual indications for return. Departure - Departure Disposition: 01 Home, Self Care Clinical Impression: Peripheral edema Condition: Stable Instructions: ED Edema Legs Bilateral Prescriptions: hydroCHLOROthiazide [Hydrochlorothiazide] 25 mg PO DAILY #30 tablet Comments: Please call for an appointment with your primary care physician as soon as possible. Wear the pressure stockings every day when you go to work to help minimize the edema in your legs. Please also take the hydrochlorothiazide on a daily basis, as directed. Discharge Date/Time: 03/18/20 17:28
== END 2020-03-18 17:28 | disposition home or self-care (01) ==
LOC: ED 16:11
DX: R60.0 Localized edema (principal); F17.200 Nicotine dependence, unspecified, uncomplicated
CPT/HCPCS: 99282; 99284

== ENCOUNTER 2020-04-23 15:07 | Emergency (ER) | payer MEDICAID ==
[2020-04-23 15:11] VITALS: BP 151/85
[2020-04-23] MEDS ORDERED: HYDROcod/ACETAM 5/325 MG TABLET PO STA (15:35)
--- NOTE | 2020-04-23 15:40 | ED Physician Documentation ---
History of Present Illness - Stated complaint Stated Complaint: RT TOOTH PX - Chief complaint Chief Complaint: Heent - History obtained from History obtained from: Patient - History of Present Illness Timing: Prior to arrival, How many weeks ago (2) Pain level max: 10 Pain level now: 9 - Additonal information Additional information: 50-year-old female presents to the emergency department with chief complaint of right lower anterior mouth tooth pain. Reports that her bicuspid fractured about 2 weeks ago. Over the last 3 to 4 days she has had progressive pain. She is unable to see her dentist for 3-4 more days. She has no trismus or fevers. She is a smoker. Review of Systems Constitutional: denies: Fever, Chills Eyes: denies: Loss of vision Nose: denies: Rhinorrhea / runny nose Throat: reports: Dental pain / toothache. 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 - Present Medications Home Medications: Ambulatory Orders Medication Instructions Recorded Confirmed Naproxen Sodium [Aleve] 220 mg PO DAILY 03/18/20 03/18/20 hydroCHLOROthiazide 25 mg PO DAILY #30 tablet 03/18/20 [Hydrochlorothiazide] Amox/Clav 875/125 [Augmentin] 1 each PO Q12H #20 tablet 04/23/20 Hydrocodone/Acetaminophen 1 each PO BID PRN #7 tablet 04/23/20 [Hydrocodone-Acetamin 5-325 mg] Omeprazole 20 mg PO 04/23/20 - Allergies Allergies/Adverse Reactions: Allergies Allergy/AdvReac Type Severity Reaction Status Date / Time codeine Allergy Cramps Verified 04/23/20 15:10 ibuprofen Allergy Nausea Verified 04/23/20 15:10 - Social History Does the pt smoke?: Yes Smoking Status: Current every day smoker Does the pt drink ETOH?: No Does the pt have substance abuse?: No - Immunizations Immunizations are current?: Yes - POLST Patient has POLST: No PD ED PE NORMAL - General General: Alert and oriented X 3, Other (And pain) - HEENT HEENT: EOMI, Ears normal, Moist mucous membranes, Other (Right lower bicuspid fractured. Mild surrounding erythema of the gumline but no fluctuance or drainage. Opens mouth normally. Normal phonation. Normal swallow) Results - Vitals Vitals: Vital Signs - 24 hr 04/23/20 15:10 Temperature 36.9 C Heart Rate 94 Respiratory 16 Rate Blood Pressure 151/85 H O2 Saturation 99 Oxygen O2 Source Room air PD MEDICAL DECISION MAKING - ED course Complexity details: reviewed results, d/w patient ED course: 50-year-old female presents to the ED with acute right lower tooth pain when her bicuspid fractured approximately 2 weeks ago. Unable to see her dentist for 3-4 more days. She does have some associated swelling around tooth #13.Taking naproxen at home without relief as well as soaking with warm salt water and trying clove oil - Will prescribe a very limited number of Vicodin as well as antibiotics for suspected infection. I also gave her the name of emergency dental clinics in [place] that are able to see patients on a walk-in but this. This time she has no red flags. No fevers trismus or facial swelling. Departure - Departure Disposition: 01 Home, Self Care Clinical Impression: Dentalgia Condition: Stable Record reviewed to determine appropriate education?: Yes Instructions: ED Tooth Pain Prescriptions: Amox/Clav 875/125 [Augmentin] 1 each PO Q12H #20 tablet Hydrocodone/Acetaminophen [Hydrocodone-Acetamin 5-325 mg] 1 each PO BID PRN #7 tablet PRN Reason: Pain Comments: Kiki continue to rinse your mouth and warm salt water 2-3 times a day. I prescribed a limited number of hydrocodone for pain until you are able to see the dentist. Please begin taking the antibiotics as prescribed. [facility] does have dental clinics with walk-in availability. If you are able to go to anyone of their dental clinics typically before noon they are typically able to see patients on a walk-in basis Turn to the ED if you have facial swelling, cannot swallow normally, cannot open your mouth or any fevers. It is important that you see a dentist as soon as possible because the pain will not improve in the long-term and less that tooth is removed
== END 2020-04-23 15:55 | disposition home or self-care (01) ==
LOC: ED 15:07
DX: K08.89 Other specified disorders of teeth and supporting structures (principal); S02.5XXA Fracture of tooth (traumatic), initial encounter for closed fracture; X58.XXXA Exposure to other specified factors, initial encounter; F17.200 Nicotine dependence, unspecified, uncomplicated
CPT/HCPCS: 99282; 99283; A9270

== ENCOUNTER 2020-10-18 12:04 | Emergency (ER) | payer MEDICAID ==
[2020-10-18] MEDS ORDERED: TETANUS/DIPHTHERIA/PERTUSSIS 0.5 ML SYRINGE IM ONE (13:12)
[2020-10-18] MEDS ORDERED: cefTRIAXone 1 GM VIAL IM STA (13:12)
[2020-10-18] MEDS ORDERED: LIDOCAINE 1% 2 ML VIAL MC ONE (13:12)
--- NOTE | 2020-10-18 13:15 | ED Physician Documentation ---
History of Present Illness - Stated complaint Stated Complaint: R POINTER FINGER INJURY - Chief complaint Chief Complaint: Laceration - Additonal information Additional information: 50-year-old female presents emergency department for evaluation of a cat bite injury to the right index finger. She reports that she was playing with her roommates cat 4 days ago when it bit her in a playful manner. She reports that she got the puncture wounds to bleed and did not think much of it until last night when she began having swelling of this finger and pain that radiates up the right arm. Now the finger is grossly swollen and she is unable to flex it. She has had no fevers. No red streaking. Unknown last tetanus. Patient is right-hand dominant. Review of Systems Constitutional: reports: Reviewed and negative Eyes: reports: Reviewed and negative Ears: reports: Reviewed and negative Nose: reports: Reviewed and negative Throat: reports: Reviewed and negative Cardiac: reports: Reviewed and negative Respiratory: reports: Reviewed and negative GI: reports: Reviewed and negative : reports: Reviewed and negative Skin: reports: Other (Puncture wound right index finger and swelling erythema right index finger) Musculoskeletal: reports: Reviewed and negative Neurologic: reports: Reviewed and negative Psychiatric: reports: Reviewed and negative PD PAST MEDICAL HISTORY - Past Medical History Past Medical History: Yes Cardiovascular: High cholesterol Respiratory: Asthma, COPD, Emphysema Neuro: None Endocrine/Autoimmune: None GI: GERD 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 HEENT: None Psych: Depression, Anxiety, ADD/ADHD Musculoskeletal: Fibromyalgia Derm: None - Past Surgical History 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 - Present Medications Home Medications: Ambulatory Orders Medication Instructions Recorded Confirmed Naproxen Sodium [Aleve] 220 mg PO DAILY 03/18/20 03/18/20 hydroCHLOROthiazide 25 mg PO DAILY #30 tablet 03/18/20 [Hydrochlorothiazide] Amox/Clav 875/125 [Augmentin] 1 each PO Q12H #20 tablet 04/23/20 Hydrocodone/Acetaminophen 1 each PO BID PRN #7 tablet 04/23/20 [Hydrocodone-Acetamin 5-325 mg] Omeprazole 20 mg PO 04/23/20 Amox/Clav 875/125 [Augmentin] 1 each PO Q12H #20 tablet 10/18/20 - Allergies Allergies/Adverse Reactions: Allergies Allergy/AdvReac Type Severity Reaction Status Date / Time codeine Allergy Cramps Verified 10/18/20 12:15 ibuprofen Allergy Nausea Verified 10/18/20 12:15 - Social History Does the pt smoke?: Yes Smoking Status: Current every day smoker Does the pt drink ETOH?: No Does the pt have substance abuse?: No - Immunizations Immunizations are current?: No Immunizations: TDAP >10years/unknown - POLST Patient has POLST: No PD ED PE EXPANDED - General General: Alert, No acute distress, In Pain - Extremities Extremities: Right finger(s) (Right index finger grossly swollen and erythemat ous. Swelling does not extend beyond the MCP joint. Limited flexion secondary to pain. No red streaking swelling of the palm or dorsum of hand. Puncture wounds without drainage. No fluctuance. pt able to extend fully, no flexion. ), Other (negative knavels) Results - Vitals Vitals: Vital Signs - 24 hr 10/18/20 12:16 Temperature 36.6 C Heart Rate 87 Respiratory 16 Rate Blood Pressure 133/64 H O2 Saturation 98 Oxygen O2 Source Room air PD MEDICAL DECISION MAKING - ED course Complexity details: considered differential, d/w patient ED course: 50-year-old female presents the emergency department for evaluation of a cat bite injury sustained 4 days ago. She has 2 puncture wounds on the palmar and dorsal side of the index finger between MCP and PIP joint. She did not develop swelling or erythema until last night which has gotten significantly worse and now this is the entire finger. She has no red streaking or swelling of the palm or dorsum of hand. Patient's tetanus was updated today and she was given 1 g of ceftriaxone injection. She will be discharged with a 10-day prescription with Augmentin. On exam history is not suspicious for flexor tenosynovitis. Patient was cautioned that if she does not have marked improvement in erythema swelling or pain over the next 48 to 72 hours to return for a second evaluation. Departure - Departure Disposition: 01 Home, Self Care Clinical Impression: Cellulitis of finger of right hand Cat bite Qualifiers: Encounter type: initial encounter Qualified Code(s): W55.01XA - Bitten by cat, initial encounter Condition: Stable Record reviewed to determine appropriate education?: Yes Instructions: ED Bite Cat Follow-Up: RAY YORK NP [Primary Care Provider] - Prescriptions: Amox/Clav 875/125 [Augmentin] 1 each PO Q12H #20 tablet Comments: Cat bites can be very serious. It is important that you fill the prescription for the Augmentin and begin taking tonight as directed. Please soak your hand and finger and very warm saline minutes 3 times a day. I would expect the swelling, redness and pain to be improving over the next 48 to 72 hours. If not improving please return immediately to the ER for reevaluation. Please schedule close follow-up with your primary care provider that should be scheduled around the end of the antibiotic course to make sure the infection has fully resolved. Your tetanus was updated today and is good for the next 7 to 10 years.
[2020-10-18 13:30] VITALS: BP 138/61
== END 2020-10-18 13:37 | disposition home or self-care (01) ==
LOC: ED 12:04
DX: L03.011 Cellulitis of right finger (principal); S61.230A Puncture wound without foreign body of right index finger without damage to nail, initial encounter; W55.01XA Bitten by cat, initial encounter; Y93.K9 Activity, other involving animal care; Y92.009 Unspecified place in unspecified non-institutional (private) residence as the place of occurrence of the external cause; F17.200 Nicotine dependence, unspecified, uncomplicated
CPT/HCPCS: 90471; 96372; 99283

== ENCOUNTER 2023-07-30 07:00 | Outpatient (CLI) | payer MEDICAID ==
--- NOTE | 2023-07-30 08:30 | Ultrasound Report ---
PROCEDURE: Abdomen Complete INDICATIONS: LLQ ABD PAIN TECHNIQUE: Real-time scanning was performed of the abdominal and retroperitoneal organs, with image documentatio n. COMPARISON: None. FINDINGS: Liver: Cirrhosis. No solid mass. Patent portal vein. Gallbladder: Unremarkable. Biliary ducts: Intrahepatic bile ducts are non-dilated. Extrahepatic bile duct caliber measures 5 m m. Normal is 6-7 mm or less in diameter, or 10 mm or less post-cholecystectomy. Pancreas: Visualized portions of the pancreas are sonographically normal. Spleen: Spleen is enlarged, measuring 13.1 x 5.9 x 12.6 cm. Kidneys: Kidneys are normal in size and echotexture. Right kidney measures 10.5 cm long; left kidne y measures 10.5 cm long. No hydronephrosis or nephrolithiasis. No solid masses. No complex renal cy stic lesions which require follow-up. Aorta: Visualized aorta is normal in caliber at less than 3 cm. Iliacs: Proximal common iliac arteries are normal in caliber at less than 2.5 cm. IVC: Intrahepatic inferior vena cava is patent. Miscellaneous: No free abdominal fluid. IMPRESSION: Cirrhosis. No solid mass. Patent portal vein. Reviewed by: Serjio Villegas on 07/30/2023 8:29 AM PST Approved by: Serjio Villegas on 07/30/2023 8:29 AM PST Station ID: [id number]
== END 2023-07-30 07:01 | disposition home or self-care (01) ==
LOC: DI 07:00
PROVIDERS: ATTEND Physician Assistant
DX: K74.60 Unspecified cirrhosis of liver (principal)